=== PATIENT | female | born 1990 | race Caucasian/White ===

== ENCOUNTER 2021-01-01 15:18 | Emergency (ER) | payer BC ==
[~2021-01-01] VITALS: Ht 170.2 cm; Wt 160.6 kg
== END 2021-01-01 18:20 | disposition home or self-care (01) ==
LOC: ER1 15:18
DX: U07.1 COVID-19 (principal); Z23 Encounter for immunization; Z90.49 Acquired absence of other specified parts of digestive tract
CPT/HCPCS: 99283; M0243